=== PATIENT | female | born 1975 | race Caucasian/White ===

== ENCOUNTER 2017-04-23 17:24 | Emergency (ER) | payer OTHER ==
[~2017-04-23] VITALS: Ht 167.6 cm; Wt 104.3 kg
[2017-04-23 18:20] LABS: EOSINOPHILS 3.2 % (0.0-3.0); HEMATOCRIT 41.4 % (37.0-47.0); HEMOGLOBIN 14.1 gm/dL (12.0-15.0); LYMPHOCYTES 23.6 % (24.0-44.0); MCH 30.4 pg (26.0-34.0); MCV 89.3 fL (80.0-100.0); MONOCYTES 6.7 % (1.0-8.0); PLATELET COUNT 254 thou/uL (150-400); POLYS 65.5 % (36.0-66.0); RBC 4.63 mil/uL (4.20-5.00); WBC 12.2 thou/uL (4.0-11.0)
[2017-04-23 18:27] LABS: MANUAL DIFF NO
[2017-04-23 18:31] LABS: CALCIUM 8.7 mg/dL (8.5-10.1); CREATININE 0.9 mg/dL (0.6-1.0); POTASSIUM 4.1 mmol/L (3.5-5.1)
[2017-04-23 18:35] LABS: ALBUMIN 3.3 g/dL (3.4-5.0); TOTAL BILIRUBIN 0.2 mg/dL (<0.1-1.0)
[2017-04-23 19:10] LABS: URINE BILIRUBIN NEGATIVE (Negative); URINE BLOOD NEGATIVE (Negative); URINE COLOR YELLOW; URINE GLUCOSE-RANDOM* NEGATIVE (Negative); URINE KETONES NEGATIVE (Negative); URINE LEUKOCYTES-REFLEX NEGATIVE (Negative); URINE PROTEIN (DIPSTICK) NEGATIVE (Negative); URINE SPECIFIC GRAVITY >= 1.030 (1.003-1.035); URINE UROBILINOGEN 0.2 E.U./dl (0.2-1.0)
[2017-04-23] MEDS ORDERED: PREDNISONE 20 M20 MG PO (19:43)
[2017-04-23] MEDS ORDERED: BENTYL 20 MG TA20 M1 PO (19:43)
[2017-04-23] MEDS ORDERED: ZOFRAN ODT4 M1 PO (19:43)
[2017-04-23 19:50] VITALS: BP 138/77
== END 2017-04-23 20:16 | disposition home or self-care (01) ==
LOC: ER 17:24
PROVIDERS: Physician Assistant
DX: R10.13 Epigastric pain (principal); D72.829 Elevated white blood cell count, unspecified; R11.2 Nausea with vomiting, unspecified; F17.210 Nicotine dependence, cigarettes, uncomplicated; F10.99 Alcohol use, unspecified with unspecified alcohol-induced disorder; F12.10 Cannabis abuse, uncomplicated

== ENCOUNTER 2021-05-10 20:12 | Emergency (ER) | payer BC ==
[~2021-05-10] VITALS: Ht 167.6 cm; Wt 95.3 kg
[~2021-05-10 20:12] MED LIST: BENTYL 20 MG TA20 M1 PO; PREDNISONE 20 M20 MG PO; ZOFRAN ODT4 M1 PO
[2021-05-10 23:29] LABS: HEMOGLOBIN 13.6 gm/dL (12.0-15.0); MCH 29.9 pg (26.0-34.0); MCHC 33.3 g/dL (28.0-37.0); MCV 89.8 fL (80.0-100.0); RBC 4.56 mil/uL (4.20-5.00); RDW 13.1 % (10.5-14.5); WBC 11.9 thou/uL (4.0-11.0)
[2021-05-11 00:57] VITALS: BP 128/84
== END 2021-05-11 07:59 | disposition home or self-care (01) ==
LOC: ER 20:12
PROVIDERS: Nurse Practitioner Family
DX: R56.9 Unspecified convulsions (principal); H53.8 Other visual disturbances; R11.0 Nausea; F17.210 Nicotine dependence, cigarettes, uncomplicated; Z91.040 Latex allergy status